=== PATIENT | male | born 1955 | race Caucasian/White ===

== ENCOUNTER 2022-06-01 21:27 | Inpatient (IN) | payer MEDICAID, SELFPAY ==
[2022-06-01] VITALS (9 sets, daily range): BP systolic 90–124; BP diastolic 69–86; PULSE 89–116; RESP 12–25; TEMP 37.1; O2SAT 77–98
--- NOTE | 2022-06-01 21:57 | W.ED.SOB ---
HPI - SOB/Dyspnea General: Chief Complaint: Shortness of Breath/Dyspnea Stated Complaint: SOB Time Seen by Provider: 06/01/22 21:57 History of Present Illness: HPI Narrative: Mr. Olguin is a 66-year-old gentleman with history of smoking and recurrent exposure to environmental/construction debris presenting to the emergency department for shortness of breath. Symptoms have been worse over the past day or so. He continues to smoke and was taking down wallpaper in any old house. He does note cough which is productive. Denies baseline oxygen use. Intensity symptoms is moderate severe and he is a new oxygen requirement. No other specific changes in health, exacerbating, or alleviating factors identified. Pertinent past history: COPD Onset (ago): hour(s) Context: other Timing: progressively worsening Severity: severe Exacerbating factors: exertion Relieving factors: nothing Associated symptoms: Reports cough Review of Systems General: Reports: 10 or more systems reviewed and unremarkable except in HPI and below PFSH ED PFSH: Medical History COPD (chronic obstructive pulmonary disease) HTN (hypertension) Surgical History No significant past surgical history Family History Other COPD (chronic obstructive pulmonary disease) Cancer Social History Smoking and tobacco status: current every day smoker cigarettes [ Other cigarette details: Has cut down] Lives independently: Yes Current occupational status: employed Current occupational exposures/hazards: Yes 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 Exam Const: COMMON NORMALS: alert GENERAL APPEARANCE: cooperative and well developed HENMT: COMMON NORMALS: normocephalic and atraumatic HEAD & SCALP: normocephalic and atraumatic Eye: COMMON NORMALS: conjunctivae normal CONJUNCTIVA: Yes conjunctivae normal SCLERA: sclerae normal Neck/C-Spine: COMMON NORMALS: supple GENERAL: Yes trachea midline Resp: EFFORT & INSPECTION: Yes tachypneic AUSCULTATION: diminished lung sounds Cardio: COMMON NORMALS: regular rate and regular rhythm RATE: regular rate RHYTHM: regular rhythm GI: COMMON NORMALS: Soft to palpation PALPATION: Yes Soft to palpation and No Tenderness to palpation present (GI) PERCUSSION: normal to percussion Extremity: GENERAL: Yes normal exam except as noted and No edema Neuro: COMMON NORMALS: moves all extremities SENSORIUM/ORIENTATION: Yes alert and No Orientation impaired Psych: COMMON NORMALS: mental status grossly normal and Normal thought process present THOUGHT PROCESS: Normal thought process present Course Vital Signs: Vital signs: Vital Signs Temperature 98.1 F 06/03/22 01:07 Pulse Rate 89 06/03/22 02:02 Respiratory Rate 16 06/03/22 02:02 Blood Pressure 93/59 06/03/22 01:07 Pulse Oximetry 92 06/03/22 02:02 Oxygen Delivery Me thod 06/03/22 02:02 Oxygen Flow Rate 5 06/03/22 02:02 Fraction of Inspir ed Oxygen 40 06/02/22 04:00 MDM - SOB/Dyspnea Medical Decision Making 66-year-old gentleman with history of COPD and no baseline oxygen requirement with continued smoking and environmental exposure presenting in respiratory distress. Patient oxygen saturation on room air in the 70s and initiated on supplemental oxygen. Patient is tachypneic and tachycardic. His mentation is adequate. He is nontoxic in appearance. RT treatments ordered. Steroids and antibiotics ordered. ABG notable for hypercapnic and hypoxic respiratory failure. BiPAP ordered. EKG notable for sinus tachycardia with nonspecific ST segment abnormalities, no STEMI. Labs with mild leukocytosis, normal hemoglobin and platelet count. Metabolic panel with increased bicarb which is likely chronic. Initial troponin mildly elevated with repeat pending. BNP is elevated. Chest x-ray negative for lobar consolidation or pneumothorax. Patient clinically appears improved with more comfortable appearance and improvement in vital signs on BiPAP. Most likely etiology of symptoms is acute exacerbation of COPD with acute hypoxic and hypercapnic respiratory failure. The results of ED evaluation were discussed with the patient including plan for admission due to requirement for level of care not available if discharged to prevent significant worsening/deterioration. Patient agreeable with plan. Discussed with hospitalist service who was agreeable to admit patient. Medical Records I reviewed the patient's medical records. Lab Data I reviewed the patient's lab results. 06/01/22 22:08 06/01/22 22:08 Labs/Radiology: Radiology Impressions Chest X-Ray 06/01/22 22:00 IMPRESSION: No acute findings. Laboratory Results WBC 11.5 10^3/uL (4.0-10.0) H 06/01/22 22:08 RBC 5.15 10^6/uL (4.1-5.3) 06/01/22 22:08 Hgb 16.1 g/dL (11.7-16.6) 06/01/22 22:08 Hct 53.2 % (42.0-52.0) H 06/01/22 22:08 MCV 103.3 fl (80-94) H 06/01/22 22:08 MCH 31.3 pg (28.0-34.0) 06/01/22 22:08 MCHC 30.3 g/dL (30.0-36.0) 06/01/22 22:08 RDW 14.3 % (12.1-15.1) 06/01/22 22:08 Plt Count 217 10^3/cmm (130-400) 06/01/22 22:08 MPV 9.8 fL (7.4-10.4) 06/01/22 22:08 Neut % (Auto) 83.2 % 06/01/22 22:08 Lymph % (Auto) 10.9 % 06/01/22 22:08 [place] % (Auto) 5.1 % 06/01/22 22:08 Eos % (Auto) 0.2 % 06/01/22 22:08 Baso % (Auto) 0.3 % 06/01/22 22:08 Neut # (Auto) 9.60 10^3/uL (1.8-7.7) H 06/01/22 22:08 Lymph # (Auto) 1.3 10^3/uL (0.8-4.8) 06/01/22 22:08 [place] # (Auto) 0.6 10^3/uL (0.2-0.9) 06/01/22 22:08 Eos # (Auto) 0.0 10^3/uL (0.0-0.8) 06/01/22 22:08 Baso # (Auto) 0.0 10^3/uL (0.0-0.1) 06/01/22 22:08 Nucleated RBC % (auto) 0 % 06/01/22 22:08 Nucleated RBCs # 0.0 /100WBC 06/01/22 22:08 Specimen Type Arterial 06/01/22 22:14 Sample Site Radial, left 06/01/22 22:14 ABG pH 7.28 (7.35-7.45) L 06/01/22 22:14 ABG pCO2 78.6 mmHg (35-45) H* 06/01/22 22:14 ABG pO2 63.1 mmHg (80.0-100.0) L 06/01/22 22:14 ABG HCO3 36.9 mmol/L (22-26) H 06/01/22 22:14 ABG Base Excess 6.6 mmol/L (-2.0-2.0) H 06/01/22 22:14 Yan Test Pos 06/01/22 22:14 Hematocrit 48.3 % (42-52) 06/01/22 22:14 Hgb O2 Saturation 84.9 % (95-100) L 06/01/22 22:14 Carboxyhemoglobin 5.9 %THgb (0.4-20.1) 06/01/22 22:14 Methemoglobin 0.4 % (0.4-1.5) 06/01/22 22:14 Total Hemoglobin 15.8 g/dL (14-18) 06/01/22 22:14 O2 Delivery Device Nc 06/01/22 22:14 FiO2 4.0 % 06/01/22 22:14 Medical Records Technician ID [email or web address] 06/01/22 22:14 Sodium 139 mmol/L (136-145) 06/01/22 22:08 Potassium 4.9 mmol/L (3.5-5.1) 06/01/22 22:08 Chloride 97 mmol/L (98-107) L 06/01/22 22:08 Carbon Dioxide 35 mmol/L (22-29) H 06/01/22 22:08 Anion Gap 11.9 (5-19) 06/01/22 22:08 BUN 11 mg/dL (8-23) 06/01/22 22:08 Creatinine 1.0 mg/dL (0.7-1.2) 06/01/22 22:08 GFR Calculation 75.2 mL/min (90-130) L 06/01/22 22:08 Glucose 138 mg/dL (65-115) H 06/01/22 22:08 Calculated Osmolality 290 mOsm/kg (285-295) 06/01/22 22:08 Lactic Acid 1.2 mmol/L (0.5-2.2) 06/01/22 22:08 Calcium 9.0 mg/dL (8.5-10.5) 06/01/22 22:08 Total Bilirubin 0.8 mg/dL (0.15-1.2) 06/01/22 22:08 AST 24 U/L (0-40) 06/01/22 22:08 ALT 15 U/L (0-41) 06/01/22 22:08 Alkaline Phosphatase 134 U/L (40-130) H 06/01/22 22:08 Troponin T Baseline 35 ng/L (0-15) H 06/01/22 22:08 Troponin T 120 Minute 37.04 ng/L (0-15) H 06/02/22 00:25 Delta Troponin T 2.04 ABS# (0-10) 06/02/22 00:25 NT-Pro-B Natriuret Pep 6582 pg/mL (0-125) H 06/01/22 22:08 Total Protein 7.6 g/dL (6.6-8.7) 06/01/22 22:08 Albumin 3.6 g/dL (3.5-5.2) 06/01/22 22:08 Globulin 4.0 g/dL (1.3-4.6) 06/01/22 22:08 SARS-CoV-2 Ag (Rapid) negative (Negative) 06/02/22 00:39 Critical Care Time Critical Care Time: Critical Care Time: Yes Total Critical Care Time: 35 Attestation: Due to a high probability of clinically significant, possibly life threatening deterioration, the patient required my highest level of attention and preparedness to intervene emergently and I personally spent this critical care time directly and personally managing the patient. This critical care time included obtaining a history; examining the patient; pulse oximetry; ordering and review of laboratory and imaging studies; arranging urgent treatment with development of a management plan; evaluation of patient's response to treatment; frequent reassessment; and, discussions with other providers as applicable. It was exclusive of separately billable procedures. Primary system involved is respiratory Discharge Plan Discharge Patient Disposition: Admitted As Inpatient Admit Provider: Darius Victor Clinical Impression: Acute exacerbation of chronic obstructive airways disease, Acute respiratory failure with hypoxia and hypercarbia Condition: Stable Coding Level of Care Code ED Sales And Marketing Representative for Estevan Bagley
--- NOTE | 2022-06-01 22:00 | XRR_ITS ---
PROCEDURE INFORMATION: Exam: XR Chest Exam date and time: 06/01/2022 10:05 PM Age: 66 years old Clinical indication: Pain; Chest pressure; Additional info: SOB TECHNIQUE: Imaging protocol: Radiologic exam of the chest. Views: 1 view. COMPARISON: No relevant prior studies available. FINDINGS: Lungs: Unremarkable. No consolidation. Pleural spaces: Unremarkable. No pleural effusion. No pneumothorax. Heart/Mediastinum: Unremarkable. No cardiomegaly. Bones/joints: Unremarkable. XR/XR chest 1V portable [id number] IMPRESSION: No acute findings.
[2022-06-01] MEDS: ipratropium-albuterol 3 mL Neb INHALATION (22:13)
[2022-06-01 22:20] LABS: Basophils % 0.3 %; Eosinophils % 0.2 %; Hematocrit 53.2 % (42.0-52.0); Hemoglobin 16.1 g/dL (11.7-16.6); Lymphocytes # 1.3 10^3/uL (0.8-4.8); Lymphocytes % 10.9 %; Mean Corpuscular HGB Conc 30.3 g/dL (30.0-36.0); Mean Corpuscular Hemoglobin 31.3 pg (28.0-34.0); Mean Corpuscular Volume 103.3 fl (80-94); Mean Platelet Volume 9.8 fL (7.4-10.4); Monocytes # 0.6 10^3/uL (0.2-0.9); Monocytes % 5.1 %; Neutrophils % 83.2 %; Nucleated Red Blood Cells % 0 %; Platelet Count 217 10^3/cmm (130-400); Red Blood Count 5.15 10^6/uL (4.1-5.3); Red Cell Distribution Width 14.3 % (12.1-15.1); White Blood Count 11.5 10^3/uL (4.0-10.0)
[2022-06-01 22:23] LABS: ABG PH Result 7.28 (7.35-7.45); Arterial Blood Gas Hematocrit 48.3 % (42-52); Base Excess ABG 6.6 mmol/L (-2.0-2.0); Blood Gas Allen Test Pos; Blood Gas Sample Site Radial, left; Blood Gas Sample Type Arterial; Carboxyhemoglobin 5.9 %THgb (0.4-20.1); HCO3 ABG 36.9 mmol/L (22-26); HGB O2 Sat 84.9 % (95-100); Methemoglobin 0.4 % (0.4-1.5); Oxygen Device NC; PO2 ABG 63.1 mmHg (80.0-100.0); Total Hemoglobin 15.8 g/dL (14-18)
--- NOTE | 2022-06-01 22:28 | ECG_ITS ---
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
[2022-06-01 22:37] LABS: ABG PCO2 78.6 mmHg (35-45)
[2022-06-01 22:49] LABS: Lactic Sepsis W/Reflex 1.2 mmol/L (0.5-2.2)
[2022-06-01] MEDS: doxycycline 100 MG in sodium chloride 0.9% (plus) 100 ML IV (22:50)
[2022-06-01] MEDS: sodium chloride 0.9% 500 ML 999 ML IV (22:50)
[2022-06-01 22:58] LABS: Alanine Aminotransferase 15 U/L (0-41); Albumin Level 3.6 g/dL (3.5-5.2); Alkaline Phosphatase 134 U/L (40-130); Anion Gap 11.9 (5-19); Aspartate Amino Transferase 24 U/L (0-40); Blood Urea Nitrogen 11 mg/dL (8-23); Carbon Dioxide 35 mmol/L (22-29); Chloride 97 mmol/L (98-107); Glomerular Filtration Rate 75.2 mL/min (90-130); Glucose 138 mg/dL (65-115); NT Pro B Type Natriuretic Pept 6582 pg/mL (0-125); Osmolality Calculated 290 mOsm/kg (285-295); Potassium 4.9 mmol/L (3.5-5.1); Sodium 139 mmol/L (136-145); Total Bilirubin 0.8 mg/dL (0.15-1.2); Total Protein 7.6 g/dL (6.6-8.7)
[2022-06-01 23:11] LABS: Troponin(5th) Baseline 35 ng/L (0-15)
[2022-06-02] VITALS (17 sets, daily range): BP systolic 93–161; BP diastolic 52–79; PULSE 60–96; RESP 16–20; TEMP 36.3–36.7; O2SAT 90–96
[2022-06-02 01:00] LABS: Troponin 5 2HR 37.04 ng/L (0-15)
[2022-06-02 01:07] LABS: Troponin 5 2HR Delta 2.04 ABS# (0-10)
[2022-06-02 01:13] LABS: SARS Covid-2 Antigen negative (Negative)
--- NOTE | 2022-06-02 01:14 | PM.HP ---
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 Started on BiPAP. Not normally on supplemental oxygen. Review of Systems Const: Denies: fever(s), chills, body aches or malaise Eyes: Denies: change in vision, eye discomfort or eye redness ENMT: Denies: throat pain, oral sores or ear or mastoid pain Card: Denies: chest pain, edema, pre-syncope or dyspnea on exertion Resp: Reports: dyspnea and productive cough GI: Denies: abdominal pain, nausea, vomiting, diarrhea, constipation, hematochezia or melena : Denies: flank pain, difficulty urinating, urinary frequency or hematuria Musc: Denies: back pain, joint swelling or joint redness Skin/Breast: Denies: rash or new lesions Neuro: Denies: headache(s), numbness in extremities, weakness in extremities, dizziness, confusion or seizure-like activity Endo: Denies: polyuria or polydipsia Lico/Lymph: Denies: easy bleeding or tender lymph nodes All/Imm: Denies: urticaria or tongue swelling PFSH Acute PFSH: Medical History COPD (chronic obstructive pulmonary disease) HTN (hypertension) Surgical History No significant past surgical history Family History Other COPD (chronic obstructive pulmonary disease) Cancer Social History Smoking and tobacco status: current every day smoker cigarettes [ Other cigarette details: Has cut down] Lives independently: Yes Current occupational status: employed Current occupational exposures/hazards: Yes 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 Const: COMMON NORMALS: patient oriented x3 and alert GENERAL APPEARANCE: cooperative ORIENTATION/CONSCIOUSNESS: Yes awake HENMT: COMMON NORMALS: oropharynx normal Neck/C-Spine: COMMON NORMALS: no JVD Resp: AUSCULTATION: wheezes lower bilaterally OTHER: BPAP Cardio: COMMON NORMALS: no JVD, regular rhythm, S1 normal heart sound present, S2 normal heart sound present and No murmurs present (Cardio) RHYTHM: regular rhythm HEART SOUNDS: S1 normal heart sound present and S2 normal heart sound present GI: COMMON NORMALS: Normal to inspection, nondistended, normoactive bowel sounds present, Soft to palpation and non-tender PALPATION: Yes Soft to palpation Extremity: COMMON NORMALS: no joint enlargement and no pedal edema Neuro: COMMON NORMALS: patient oriented x3 and moves all extremities SENSORIUM/ORIENTATION: Yes alert Skin: COMMON NORMALS: no rashes or lesions noted GENERAL SKIN EXAM: no rashes or lesions noted Data 06/01/22 22:08 06/01/22 22:08 Micro: Microbiology 06/01/22 22:22 Blood Culture - Preliminary Blood SPECIMEN COLLECTED 06/01/22 22:08 Blood Culture - Preliminary Blood SPECIMEN COLLECTED A&P Assessment and plan (1) Acute respiratory failure with hypoxia and hypercarbia: ABG noted 7.28/78.6/63.1/36.9, with acute respiratory acidosis. Continue BiPAP support. Wean down as tolerating. Not normally on oxygen. For COPD exacerbation we will give IV steroid, ceftriaxone, collect urine culture. Noted negative rapid COVID. Assess for rapid influenza. RT assess and treat. Cardiac monitoring due to respiratory failure, risk of arrhythmia. Complete trop and EKG series. Discussed with ER physician. ER documentation reviewed. (2) Acute exacerbation of chronic obstructive airways disease: As above. Plan COPD: At home uses Trelegy HTN: Stable, takes a medication at home but does not remember the name of it With regards to CODE STATUS, he is okay with full code for now, but would like to think about things and may let us know in case he decides to de-escalate. Attestations Medical Necessity Statement*: Admission of over 2 midnights anticipated for assessment management of acute hypoxic and hypercapnic respiratory failure, COPD exacerbation. Diagnoses Acute respiratory failure with hypoxia and hypercarbia J96.01; J96.02 Acute exacerbation of chronic obstructive airways disease J44.1
--- NOTE | 2022-06-02 01:44 | PC.NURSE ---
Report called to allyn on [facility] @01:44
[2022-06-02 02:43] LABS: Influenza A by IFA negative (Negative); Influenza B by IFA negative (Negative)
[2022-06-02] MEDS: ipratropium-albuterol 3 mL Neb INHALATION ×4 (02:47→20:05)
--- NOTE | 2022-06-02 02:54 | ECG_ITS ---
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1955 Requested By: Ji Nicholson Order Number: [id number] Reading MD: NAIMA ACUNA Measurements Intervals [place] Rate: 90 P: 55 CA: 170 QRS: 211 QRSD: 98 T: 34 QT: 356 QTc: 436 Interpretive Statements SINUS RHYTHM PATTERN CONSISTENT WITH PULMONARY DISEASE POSSIBLE RIGHT VENTRICULAR HYPERTROPHY [SOME/ALL OF: PROMINENT R IN V1, LATE TRANSITION, RAD, MIKE, SSS] MINIMAL ST DEPRESSION [0.025+ mV ST DEPRESSION] No previous ECG available for comparison Electronically Signed On 06-02-2022 17:44:13 CDT by NAIMA ACUNA [id number]
[2022-06-02] MEDS: albuterol 2.5 mg/3 mL Neb INHALATION ×3 (03:35→03:37)
[2022-06-02] MEDS: cefTRIAXone 1,000 MG in sodium chloride 0.9% (plus) 50 ML 100 MG IV (04:11)
--- NOTE | 2022-06-02 04:28 | ECG_ITS ---
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
[2022-06-02 05:04] LABS: Troponin 5 6HR 33.14 ng/L (0-15)
[2022-06-02 05:26] LABS: Troponin 5 6HR Delta -1.86 ng/L (0-12)
--- NOTE | 2022-06-02 10:50 | PM.MISC ---
Miscellaneous Note Note: Patient was seen H&P reviewed Patient is on 5 L nasal cannula Mild wheezing Awake and alert S1, S2 Hemodynamic stable I will continue his steroids Off BiPAP Wean oxygen off Plan to discharge him by tomorrow Afebrile Mild leukocytosis Patient is stating that he would like to follow-up with his own PCP No active chest pain
[2022-06-02] MEDS: magnesium sulfate premix 2 GM/50 ML PIGGYBACK IV (11:18)
[2022-06-02] MEDS: lisinopril 10 mg Tablet PO (11:18)
[2022-06-02] MEDS: amlodipine 10 mg Tablet PO (11:18)
[2022-06-03] VITALS (13 sets, daily range): BP systolic 87–100; BP diastolic 50–63; PULSE 82–103; RESP 16–18; TEMP 36.5–36.9; O2SAT 90–100
[2022-06-03] MEDS: cefTRIAXone 1,000 MG in sodium chloride 0.9% (plus) 50 ML 100 MG IV (01:11)
[2022-06-03] MEDS: ipratropium-albuterol 3 mL Neb INHALATION ×3 (02:02→20:06)
[2022-06-03 05:15] LABS: Basophils % 0.1 %; Eosinophils % 0.1 %; Hematocrit 45.4 % (42.0-52.0); Hemoglobin 13.9 g/dL (11.7-16.6); Lymphocytes # 0.4 10^3/uL (0.8-4.8); Lymphocytes % 2.1 %; Mean Corpuscular HGB Conc 30.6 g/dL (30.0-36.0); Mean Corpuscular Hemoglobin 31.4 pg (28.0-34.0); Mean Corpuscular Volume 102.7 fl (80-94); Mean Platelet Volume 10.5 fL (7.4-10.4); Monocytes # 0.1 10^3/uL (0.2-0.9); Monocytes % 0.7 %; Neutrophils # 17.65 10^3/uL (1.8-7.7); Neutrophils % 96.5 %; Nucleated Red Blood Cells % 0 %; Platelet Count 207 10^3/cmm (130-400); Red Blood Count 4.42 10^6/uL (4.1-5.3); Red Cell Distribution Width 14.3 % (12.1-15.1); White Blood Count 18.3 10^3/uL (4.0-10.0)
[2022-06-03 05:38] LABS: Alanine Aminotransferase 10 U/L (0-41); Albumin Level 2.9 g/dL (3.5-5.2); Alkaline Phosphatase 105 U/L (40-130); Anion Gap 13.3 (5-19); Aspartate Amino Transferase 14 U/L (0-40); Blood Urea Nitrogen 30 mg/dL (8-23); Calcium 8.4 mg/dL (8.5-10.5); Carbon Dioxide 32 mmol/L (22-29); Chloride 98 mmol/L (98-107); Globulin 3.2 g/dL (1.3-4.6); Glucose 159 mg/dL (65-115); Osmolality Calculated 296 mOsm/kg (285-295); Potassium 5.3 mmol/L (3.5-5.1); Sodium 138 mmol/L (136-145); Total Bilirubin 0.4 mg/dL (0.15-1.2); Total Protein 6.1 g/dL (6.6-8.7)
--- NOTE | 2022-06-03 08:01 | CT_ITS ---
WS: [id number] CT CHEST ANGIOGRAPHY WITH REFORMATS HISTORY: hypoxia TECHNIQUE: Contiguous axial images are obtained through the chest during arterial injection of intrav enous contrast. Images are reconstructed to evaluate the pulmonary arteries. MIP imaging also reviewe d. All CT scans at [facility] use at least one of these dose optimization techniques: automat ed exposure control; mA and/or kV adjustment per patient size (includes targeted exams where dose is matched to clinical indication); or iterative reconstruction. CONTRAST: Omnipaque 350; 100 mL IV. DLP: 412.41 mGy.cm COMPARISON: None available. Excellent opacification of the pulmonary arteries. No filling defects. Pulmonary artery size is top n ormal. Mild atherosclerosis thoracic aorta. Calcified plaque and intimal thickening with no aneurysm or dissection. Mild atherosclerotic disease extends into the proximal great vessels. Heart is slightl y enlarged. There is mild RIGHT heart strain. Interventricular septum is flattened in the RIGHT heart is dilated. Very mildly prominent lymphoid tissue in the mediastinum and linda but no obvious enlarged lymph nodes . Hyperinflated lungs and chronic emphysema. 5 mm noncalcified nodule RIGHT upper lobe. No pneumonia. Very small bilateral pleural effusions. Small hiatal hernia. Mild lobular appearance of the liver as visualized with hepatic steatosis. Consider cirrhosis. There is mild soft tissue anasarca. Mesenteric edema is also noted with marked perinephric stranding and fl uid surrounding the kidneys. Atherosclerotic changes continue into the suprarenal aorta. L1 20% compression fracture. CT/CT angio chest PE protcl [id number] IMPRESSION: 1. No pulmonary embolism. 2. Pulmonary artery is top normal size. 3. Mild RIGHT heart enlargement with flattening of the interventricular septum and RIGHT heart strain. 4. Diffuse, mild soft tissue anasarca. 5. Moderate perinephric stranding surrounding the visualized kidneys. 6. No pneumonia. 7. 5 mm noncalcified RIGHT upper lobe nodule. Recommend follow-up chest CT in 6 months. 8. Small bilateral pleural effusions.
[2022-06-03] MEDS: iohexol 350 mg/mL 500 mL Btl (per mL) IV (08:38)
--- NOTE | 2022-06-03 10:06 | USCV_ITS ---
Silvestre Olguin Age: 66 Gender: M : 1955 Exam Date: 06/03/2022 10:42 Ordering Phys: Latasha Louise MD Technologist: LUIS Exam Location: [facility] [place] Indication: FOLLOW UP CT FOR FLATTENING OF THE INTRAVENTICULAR SEPTUM BP: 96 / 61 HR: 88 Rhythm: Sinus Technical Quality: Adequate MEASUREMENTS (Male / Female) Normal Values 2D ECHO LVOT Diameter 2.0 cm LV Ejection Fraction MOD 2C 70.0 % LV Ejection Fraction 2C AL 72.0 % LA Diameter 2.9 cm LA Width 3.5 cm LA Height 3.6 cm RA Width 5.5 cm RA Height 5.6 cm Aorta at Sinotubular Diameter 2.3 cm IVC Diameter 2.3 cm M-MODE Aortic Annulus Diameter 3.2 cm LA Ao Ratio MM 0.8 MV E Point Septal Separation 0.0 cm DOPPLER AV Peak Velocity 142.0 cm/s LVOT Peak Velocity 92.0 cm/s AV Area Cont Eq vti 2.1 cm squared AV Area Cont Eq pk 2.0 cm squared MV Peak Velocity 110.0 cm/s MV Area PHT 3.1 cm squared Mitral E to A Ratio 0.9 MV E' Velocity 56.5 cm/s Mitral E to MV E' Ratio 7.7 Mitral E to LV E' Lateral Ratio 7.2 Mitral E to LV E' Septal Ratio 8.2 TR Peak Velocity 210.8 cm/s TR Peak Gradient 17.8 mmHg TR Mean Velocity 202.7 cm/s TR Mean Gradient 17.2 mmHg TR Velocity Time Integral 73.5 cm TV Peak E Velocity 64.0 cm/s Right Atrial Pressure 15.0 mmHg Pulmonary Artery Systolic Pressu 32.8 mmHg PV Peak Velocity 105.0 cm/s RV Acceleration Time 0.2 s RV Ejection Time 0.3 s RV AcT/ET 0.5 FINDINGS Left Ventricle Normal left ventricular size, systolic function and wall thickness, left ventricular ejection fraction is estimated at 55 %. Flattened septum in diastole consistent with right ventricle volume overload. Flattened septum in systole consistent with right ventricle pressure overload. Grade I/IV diastolic dysfunction (abnormal relaxation filling pattern), normal to mildly elevated filling pressures. Right Ventricle Severely increased right ventricular size. Severely decreased right ventricular systolic function. Right Atrium Moderately increased right atrial size. Left Atrium The left atrium is normal in size. Mitral Valve Structurally normal mitral valve without significant stenosis or prolapse. There is no mitral regurgitation. Aortic Valve Structurally normal aortic valve without significant sclerosis or stenosis. There is no aortic regurgitation. Tricuspid Valve Structurally normal tricuspid valve without significant stenosis, mild regurgitation. Pulmonary artery systolic pressure is mildly increased. Pulmonic Valve Structurally normal pulmonic valve without significant stenosis. There is no pulmonic regurgitation. Pericardium Normal pericardium without effusion. Aorta Normal ascending aorta dimension. IVC Dilated IVC with decreased respiratory variation. CONCLUSIONS 1-Normal left ventricular size, systolic function and wall thickness, left ventricular ejection fraction is estimated at 55 %. Flattened septum in diastole consistent with right ventricle volume overload. Flattened septum in systole consistent with right ventricle pressure overload. Grade I/IV diastolic dysfunction (abnormal relaxation filling pattern), normal to mildly elevated filling pressures. 2-Severely increased right ventricular size. Severely decreased right ventricular systolic function. 3-Moderately increased right atrial size. 4-Structurally normal tricuspid valve without significant stenosis, mild regurgitation. Pulmonary artery systolic pressure is mildly increased. 5-There is no pericardial effusion. 6-Dilated IVC with decreased respiratory variation. Latasha Nichols MD (Electronically Signed) Final Date: 03 June 2022 19:12 S
--- NOTE | 2022-06-03 10:42 | P.PN_ITS ---
Subjective Subjective: Blood pressure staying soft Requested CTA chest however which did not show PE however it is showing right heart strain right ventricular dysfunction, I requested echo Patient is on 4 L Low blood pressure noted Held antihypertensive regimen Patient is stating that he has obstructive disease alcohol with Pepsi, his CT scan is showing signs of liver cirrhosis 20% compression fracture L1 Vitals/I&O/Wt Last Vital Signs Temp 97.8 F 06/03/22 08:00 Pulse 85 06/03/22 08:00 Resp 16 06/03/22 08:00 BP 96/61 06/03/22 08:00 Pulse Ox 92 06/03/22 08:00 O2 Del Method 06/03/22 08:00 O2 Flow Rate 4 06/03/22 07:35 FiO2 40 06/02/22 04:00 06/02/22 06/03/22 06/03/22 22:59 06:59 14:59 Intake Total 240 / 580 50 / 630 0 / 0 Output Total 300 / 600 Balance -60 / -20 50 / 30 0 / 0 Weight last 48 hrs Weight 83.915 kg Physical Exam Narrative: Awake and alert GCS GCS 15 Pleasant and cooperative Sitting in the bed nurse at the bedside Abdomen soft Nonfocal neuro exam No conversational dyspnea Data 06/03/22 04:19 06/03/22 04:19 Micro: Microbiology 06/01/22 22:22 Blood Culture - Preliminary Blood NEGATIVE TO DATE 06/01/22 22:08 Blood Culture - Preliminary Blood NEGATIVE TO DATE A&P Assessment and plan (1) Acute exacerbation of chronic obstructive airways disease: (2) Acute respiratory failure with hypoxia and hypercarbia: (3) COPD (chronic obstructive pulmonary disease): (4) Alcohol abuse: Plan COPD exacerbation: Currently patient on 4 L Continue antibiotics Off BiPAP Will need home O2 eval Interventricular septum deviation noted on CT chest which was requested to rule out PE Will request echo It is also showing L1 compression fracture Liver cirrhosis Patient has history of alcohol Patient is stating that he has substituted alcohol with Pepsi, he drinks Pepsi all day now Active smoker Full code Cardiac diet Hypertension: Added amlodipine lisinopril yesterday however today he is hypotensive: No active chest pain Troponin with negative delta Rule out reduced ejection fraction heart failure requested echo Attestations Medical Necessity Statement*: Continue medical management Coding Level of Care Code 22551 Moderate MDM includes number and complexity of problems actively addressed during encounter, amount and/or complexity of data reviewed/ordered and described risk of complication, morbidity or mortality of management as document ed Diagnoses Acute exacerbation of chronic obstructive airways disease J44.1 Acute respiratory failure with hypoxia and hypercarbia J96.01; J96.02 COPD (chronic obstructive pulmonary disease) J44.9 Alcohol abuse F10.10
[2022-06-04] VITALS (87 sets, daily range): BP systolic 97–120; BP diastolic 60–82; PULSE 60–106; RESP 2–38; TEMP 36.6–37; O2SAT 83–97
--- NOTE | 2022-06-04 03:58 | PC.NURSE ---
Took over pt care at this time.
[2022-06-04 05:34] LABS: Basophils % 0.1 %; Hematocrit 47.3 % (42.0-52.0); Hemoglobin 14.4 g/dL (11.7-16.6); Lymphocytes # 1.1 10^3/uL (0.8-4.8); Lymphocytes % 5.7 %; Mean Corpuscular HGB Conc 30.4 g/dL (30.0-36.0); Mean Corpuscular Hemoglobin 31.4 pg (28.0-34.0); Mean Corpuscular Volume 103.1 fl (80-94); Mean Platelet Volume 10.3 fL (7.4-10.4); Monocytes % 5.2 %; Neutrophils # 17.29 10^3/uL (1.8-7.7); Neutrophils % 88.5 %; Nucleated Red Blood Cells % 0 %; Platelet Count 215 10^3/cmm (130-400); Red Blood Count 4.59 10^6/uL (4.1-5.3); Red Cell Distribution Width 14.8 % (12.1-15.1); White Blood Count 19.6 10^3/uL (4.0-10.0)
--- NOTE | 2022-06-04 05:39 | PM.PN ---
Subjective Subjective: Patient remained on 4 L Blood pressure slightly improved Afebrile Discussed with the patient regarding right and left heart catheterization Discussed with Dr. Nichols his right ventricle is abnormal dilated No signs of PE on CTA, there is most likely underlying undiagnosed pulmonary hypertension Vitals/I&O/Wt Last Vital Signs Temp 98.3 F 06/04/22 04:00 Pulse 84 06/04/22 04:00 Resp 18 06/04/22 04:00 BP 109/72 06/04/22 04:00 Pulse Ox 94 06/04/22 04:00 O2 Del Method 06/03/22 20:00 O2 Flow Rate 4 06/03/22 20:00 FiO2 40 06/02/22 04:00 06/03/22 06/03/22 06/04/22 14:59 22:59 06:59 Intake Total 240 / 240 480 / 720 Output Total 650 / 650 Balance 240 / 240 480 / 720 -650 / 70 Physical Exam Narrative: Patient is awake and alert No active wheezing Fatigued and lethargic Currently on 4 L Diminished breath sounds bilaterally S1, S2 Euvolemic Nonfocal neuro exam Data 06/04/22 05:02 06/03/22 04:19 Micro: Microbiology 06/03/22 07:20 Gram Stain - Final Sputum - Expectorated Sputum A&P Assessment and plan (1) Acute exacerbation of chronic obstructive airways disease: (2) Acute respiratory failure with hypoxia and hypercarbia: (3) Right ventricular dysfunction: Plan 66-year male who does not follow-up with PCP on regular basis presented with chief complaint of worsening of shortness of breath he was diagnosed with hypoxic hypercapnic respiratory failure required BiPAP with transition him to 4 L nasal cannula, he is self-pay, during work-up found right heart strain, no signs of PE, likely undiagnosed pulmonary hypertension Acute COPD exacerbation Improved Currently on 4 L Acute on chronic hypoxia Currently on 4 L Home oxygen evaluation will be needed before discharge Right ventricular dysfunction like related to undiagnosed pulmonary hypertension No signs of PE Detailed discussion took place with the patient regarding right and left heart cath Echo reviewed Echo findings discussed with the patient All concerning findings explained to the patient in simple terms, right ventricle dysfunction is considered high risk for mortality morbidity Significant leukocytosis Request MRSA PCR Sputum culture reviewed Most likely leukocytosis due to high-dose steroids which were used every 8 hours on admission Full code N.p.o. DVT prophylaxis on board Attestations Medical Necessity Statement*: Continue medical management Diagnoses Acute exacerbation of chronic obstructive airways disease J44.1 Acute respiratory failure with hypoxia and hypercarbia J96.01; J96.02 Right ventricular dysfunction I51.9
[2022-06-04 05:54] LABS: Alanine Aminotransferase 14 U/L (0-41); Albumin Level 3.2 g/dL (3.5-5.2); Alkaline Phosphatase 93 U/L (40-130); Anion Gap 9.7 (5-19); Aspartate Amino Transferase 20 U/L (0-40); Blood Urea Nitrogen 26 mg/dL (8-23); Calcium 8.6 mg/dL (8.5-10.5); Carbon Dioxide 34 mmol/L (22-29); Chloride 98 mmol/L (98-107); Globulin 3.3 g/dL (1.3-4.6); Glomerular Filtration Rate 97.3 mL/min (90-130); Glucose 111 mg/dL (65-115); Osmolality Calculated 287 mOsm/kg (285-295); Potassium 5.7 mmol/L (3.5-5.1); Sodium 136 mmol/L (136-145); Total Bilirubin 0.5 mg/dL (0.15-1.2); Total Protein 6.5 g/dL (6.6-8.7)
[2022-06-04] MEDS: levoFLOXacin 750 mg Tablet PO (05:56)
[2022-06-04] MEDS: predniSONE 20 mg Tablet 40 MG PO (09:59)
--- NOTE | 2022-06-04 10:29 | PM.DCS ---
Discharge Providers Date of Admission: 06/02/22 02:07 Date of Discharge: June 04, 2022 Attending Provider at Admission: Darius Victor Attending Provider at Discharge: Latasha Louise MD Diagnoses at Discharge Discharge Diagnosis (1) Acute exacerbation of chronic obstructive airways disease: Status: Acute (2) Acute respiratory failure with hypoxia and hypercarbia: Status: Acute (3) Right ventricular dysfunction: Status: Acute Reason for Visit Reason for Visit: SOB Hospital Course Hospital Course 66-year male who was admitted for management of hypoxia hypercapnia related to COPD exacerbation, high BNP negative Troponins negative, echo showed preserved ejection fraction of left ventricle however right ventricle is extremely dilated, showing septal deviation, no signs of PE noted, patient was treated for hyperkalemia with insulin calcium gluconate and dextrose, this case was discussed with furniture fabricator Dr. Badillo, patient most likely has undiagnosed severe pulmonary hypertension, I took my time to explain the gravid situation and explained electrolyte clinical dysfunction means, patient did not agree for right and left heart cardiac catheterization, he was kept n.p.o. for the possible procedure but he is wanting to leave and stating he would like to follow-up outpatient. Patient is stating that his CODE STATUS is DNR/DNI he is not full code, lives with a girlfriend, he does not have any family members to discuss the situation. He has quit alcohol, I did tell him about liver cirrhotic findings on imaging, I did tell him that he carries high risk for sudden cardiac arrest, he is high risk for mortality and morbidity, I will give him Dr. Royal as outpatient cardiac referral. Does not go want to go to [facility] for pulmonary hypertension clinic appointment yet. I will give him referral in case he changes his mind. Patient has been requiring 4 L of oxygen. I want to be able to give him metoprolol, lisinopril and spironolactone, for now I would like to treat his hypoxia with trelegy and albuterol. Because of low blood pressure Physical Exam Narrative: Patient is awake and alert No active wheezing Fatigued and lethargic Currently on 4 L Diminished breath sounds bilaterally S1, S2 Euvolemic Nonfocal neuro exam Discharge Data Studies Completed and Pending Completed Studies During Hospitalization Category Date Time Status CTA PE [CT angio chest PE protcl [id number]] Routine Cat Scan 06/03/22 08:01 Completed XR chest 1V portable [id number] Stat Exams 06/01/22 22:00 Completed CV. echo complete* [id number] Routine Ultrasound 06/03/22 10:06 Completed Pending at discharge Category Date Time Status Blood Culture Stat Lab 06/01/22 22:22 Results Complete Blood Count w/Auto AM LABS Lab 06/05/22 04:00 Ordered Comprehensive Metabolic Panel AM LABS Lab 06/05/22 04:00 Ordered Sputum Culture and Gram Stain Routine Lab 06/02/22 02:07 Results Radiology Impressions Chest X-Ray 06/01/22 22:00 IMPRESSION: No acute findings. Chest CTA 06/03/22 08:01 IMPRESSION: 1. No pulmonary embolism. 2. Pulmonary artery is top normal size. 3. Mild RIGHT heart enlargement with flattening of the interventricular septum and RIGHT heart strain. 4. Diffuse, mild soft tissue anasarca. 5. Moderate perinephric stranding surrounding the visualized kidneys. 6. No pneumonia. 7. 5 mm noncalcified RIGHT upper lobe nodule. Recommend follow-up chest CT in 6 months. 8. Small bilateral pleural effusions. Laboratory Results WBC 19.6 10^3/uL (4.0-10.0) H 06/04/22 05:02 RBC 4.59 10^6/uL (4.1-5.3) 06/04/22 05:02 Hgb 14.4 g/dL (11.7-16.6) 06/04/22 05:02 Hct 47.3 % (42.0-52.0) 06/04/22 05:02 MCV 103.1 fl (80-94) H 06/04/22 05:02 MCH 31.4 pg (28.0-34.0) 06/04/22 05:02 MCHC 30.4 g/dL (30.0-36.0) 06/04/22 05:02 RDW 14.8 % (12.1-15.1) 06/04/22 05:02 Plt Count 215 10^3/cmm (130-400) 06/04/22 05:02 MPV 10.3 fL (7.4-10.4) 06/04/22 05:02 Neut % (Auto) 88.5 % 06/04/22 05:02 Lymph % (Auto) 5.7 % 06/04/22 05:02 [place] % (Auto) 5.2 % 06/04/22 05:02 Eos % (Auto) 0.0 % 06/04/22 05:02 Baso % (Auto) 0.1 % 06/04/22 05:02 Neut # (Auto) 17.29 10^3/uL (1.8-7.7) H 06/04/22 05:02 Lymph # (Auto) 1.1 10^3/uL (0.8-4.8) 06/04/22 05:02 [place] # (Auto) 1.0 10^3/uL (0.2-0.9) H 06/04/22 05:02 Eos # (Auto) 0.0 10^3/uL (0.0-0.8) 06/04/22 05:02 Baso # (Auto) 0.0 10^3/uL (0.0-0.1) 06/04/22 05:02 Nucleated RBC % (auto) 0 % 06/04/22 05:02 Nucleated RBCs # 0.0 /100WBC 06/04/22 05:02 Specimen Type Arterial 06/01/22 22:14 Sample Site Radial, left 06/01/22 22:14 ABG pH 7.28 (7.35-7.45) L 06/01/22 22:14 ABG pCO2 78.6 mmHg (35-45) H* 06/01/22 22:14 ABG pO2 63.1 mmHg (80.0-100.0) L 06/01/22 22:14 ABG HCO3 36.9 mmol/L (22-26) H 06/01/22 22:14 ABG Base Excess 6.6 mmol/L (-2.0-2.0) H 06/01/22 22:14 Yan Test Pos 06/01/22 22:14 Hematocrit 48.3 % (42-52) 06/01/22 22:14 Hgb O2 Saturation 84.9 % (95-100) L 06/01/22 22:14 Carboxyhemoglobin 5.9 %THgb (0.4-20.1) 06/01/22 22:14 Methemoglobin 0.4 % (0.4-1.5) 06/01/22 22:14 Total Hemoglobin 15.8 g/dL (14-18) 06/01/22 22:14 O2 Delivery Device Nc 06/01/22 22:14 FiO2 4.0 % 06/01/22 22:14 Outsole Splicer ID [email or web address] 06/01/22 22:14 Sodium 136 mmol/L (136-145) 06/04/22 05:02 Potassium 5.7 mmol/L (3.5-5.1) H 06/04/22 05:02 Chloride 98 mmol/L (98-107) 06/04/22 05:02 Carbon Dioxide 34 mmol/L (22-29) H 06/04/22 05:02 Anion Gap 9.7 (5-19) 06/04/22 05:02 BUN 26 mg/dL (8-23) H 06/04/22 05:02 Creatinine 0.8 mg/dL (0.7-1.2) 06/04/22 05:02 GFR Calculation 97.3 mL/min (90-130) 06/04/22 05:02 Glucose 111 mg/dL (65-115) 06/04/22 05:02 Calculated Osmolality 287 mOsm/kg (285-295) 06/04/22 05:02 Lactic Acid 1.2 mmol/L (0.5-2.2) 06/01/22 22:08 Calcium 8.6 mg/dL (8.5-10.5) 06/04/22 05:02 Total Bilirubin 0.5 mg/dL (0.15-1.2) 06/04/22 05:02 AST 20 U/L (0-40) 06/04/22 05:02 ALT 14 U/L (0-41) 06/04/22 05:02 Alkaline Phosphatase 93 U/L (40-130) 06/04/22 05:02 Troponin T Baseline 35 ng/L (0-15) H 06/01/22 22:08 Troponin T 120 Minute 37.04 ng/L (0-15) H 06/02/22 00:25 Delta Troponin T 2.04 ABS# (0-10) 06/02/22 00:25 Troponin T Hi Sens 6Hr 33.14 ng/L (0-15) H 06/02/22 04:07 Troponin T Hi Sens 6Hr Delta -1.86 ng/L (0-12) L 06/02/22 04:07 NT-Pro-B Natriuret Pep 6582 pg/mL (0-125) H 06/01/22 22:08 Total Protein 6.5 g/dL (6.6-8.7) L 06/04/22 05:02 Albumin 3.2 g/dL (3.5-5.2) L 06/04/22 05:02 Globulin 3.3 g/dL (1.3-4.6) 06/04/22 05:02 Influenza Type A Ag negative (Negative) 06/02/22 02:20 Influenza Type B Ag negative (Negative) 06/02/22 02:20 SARS-CoV-2 Ag (Rapid) negative (Negative) 06/02/22 00:39 Vitals Last Vital Signs Temp 97.9 F 06/04/22 08:00 Pulse 81 06/04/22 08:00 Resp 16 06/04/22 08:00 BP 99/66 06/04/22 08:00 Pulse Ox 97 06/04/22 08:00 O2 Del Method 06/04/22 08:00 O2 Flow Rate 4 06/04/22 08:00 FiO2 40 06/02/22 04:00 Discharge Plan Discharge Patient Disposition: Home Condition: Stable Prescriptions: New albuterol sulfate 90 mcg/actuation aerosol powdr breath activated 1 inh inhalation Q6H PRN (Reason: shortness of breath) Qty: 1 4RF Trelegy Ellipta 100-62.5-25 mcg blister with device 1 inh inhalation DAILY Qty: 60 3RF levofloxacin 750 mg Tablet 750 mg PO DAILY@0600 Qty: 5 0RF lisinopril 2.5 mg tablet 2.5 mg PO DAILY Qty: 30 0RF Continued Trelegy Ellipta 100-62.5-25 mcg Blister With Device 1 inh INHALATION DAILY Qty: 8.5 3RF Discontinued Edarbi 40 mg Tablet 40 mg PO DAILY Discharge Orders: Discharge Order (Routine); Ordered 06/04/22 Ordered By: Latasha Louise Referrals: Alexys Morin M.D [Physician] - 7-10 days (message sent) Andrew Vega NP [Referring] - 06/11/22 10:30 am (Please follow up with TARIK Batres at [facility] on March 23rd at 1030. ) Paul Dale MD [Referring] - 1-3 days (Pulmonary hypertension clinic at [facility]) Discharge Diet: Cardiac Discharge Activity: Increase activity as tolerated Patient Instructions: Opioid Safety, Pain Management Discharge Attestations Time Spent in Discharge Care*: less than 30 min Quality Metrics Clinical Quality Measures [ No reported AMI, CVA or VTE this stay] Coding Level of Care Code Acute Code for Chg Fwd Diagnoses Acute exacerbation of chronic obstructive airways disease J44.1 Acute respiratory failure with hypoxia and hypercarbia J96.01; J96.02 Right ventricular dysfunction I51.9
[2022-06-04] MEDS: calcium gluconate 0.9% NaCL 1 GM/50 ML PREMIX IV (12:25)
[2022-06-04] MEDS: insulin regular-human 10 UNIT in SYRINGE 1 EACH IVP (12:26)
--- NOTE | 2022-06-04 13:18 | XACV_ITS ---
Exam Room: [facility] Ht: 178 cm Wt: 84 kg BSA: 2.05 m2 Gender: Male : 1955 Exam Priority: Routine Procedure(s): Procedure Description: Diagnostic procedure Procedure Description: PCI procedure Procedure Description: Right Heart Catheterization Procedure Description: O2 saturation Procedure Description: Drug Eluting Coronary Stent Procedure Description: PTCA Procedure Description: Cutting Balloon Procedure Description: Miscellaneous Procedure Description: ACT Procedure Description: Coronary Angiography Latasha Nichols MD; Magdalena WRIGHT; Diagnostic Cath Status: Elective Diagnostic Findings * 1. Left main luminal irregularity * 2. LAD has luminal irregularities with mid 60 to 70% stenosis3. Left circumflex artery has luminal irregularity it is a nondominant vessel without significant stenosis4. RCA has mid 100% occlusion * . PCI Status: Elective PCI Indication: STEMI - Immediate PCI for STEMI Interventional Findings * PCI to mid RCA: We were able to cross the lesion with the help of run-through wire. 2.5 x 15 mm compliant AB trek balloon followed by score flex 2.5 x 15 mm was used to dilate the lesion. 3.5 x 22 mm drug-eluting stent MDAristeo [place] was deployed at nominal pressure. Stent was then postdilated with 4.0 x 12 mm balloon. Excellent angiographic result with DARIELA-3 flow was achieved.. Recommendations * Lifestyle modificationContinue aspirin statin add beta-geri and TA inhibitor over next 24 hoursContinue dual antiplatelet therapy for at least 1 yearOn guideline medical therapy stress test in 6 to 8 weeks to assess mid LAD moderate lesion. Interventional RX Recommendation: PCI w/o planned CABG Diagnostic RX Recommendation: PCI w/o planned CABG Pressures Phase:Rest AO : 96 / 61 ( 75 ) @ 3:20:00 PM 83 / 68 ( 76 ) @ 3:22:00 PM 85 / 69 ( 74 ) @ 3:50:00 PM RV : 55 / 12 / 22 @ 3:08:00 PM PA : 65 / 33 ( 45 ) @ 2:55:00 PM 62 / 32 ( 40 ) @ 3:00:00 PM 58 / 29 ( 41 ) @ 3:02:00 PM 54 / 28 ( 39 ) @ 3:04:00 PM RA : a wave = 24 v wave = 22 mean = 20 @ 3:09:00 PM PCW : a wave = 22 v wave = 21 mean = 21 @ 3:06:00 PM O2 Content Phase:Rest PA : O2 Content O2: 62.5 @ 3:22:00 PM Saturations Phase:Rest RA : 56 @ 3:20:00 PM RV : 52 @ 3:50:00 PM PA : 63 @ 3:22:00 PM Clinical Evaluation EBL: 5mL-10mL Procedural Details Procedure Consent Obtained. Admit Source: In Patient. Pre-Procedure Time Out. Identified patient by full name and date of as verbalized by the patient/guarantor. Does the consent match the physician's order: Yes. Accurate & Complete Informed Consent: Yes. Inpatient/Outpatient History & Physical on Chart: Yes. If H&P is completed, is and addenduem needed: No; If yes, is the addendum complete: N/A. Visualize and Verify Site with Patient/Guarantor: N/A. Relevant Radiology Images available: Yes. The risks, benefits, and alternatives of sedation and/or procedure were discussed by physician. The patient agrees to continue. Procedure started. [facility] Clinical Fraility Score: 4: Vulnerable. Customer Success Manager Indications: Right Ventricular Dysfunction. Correct patient, site and procedure confirmed by cath team. PERRLA. Strong, equal hand hazardous substances scientist bilaterally. Lungs clear x 5 lobes. IV Site on Arrival: 20 gauge in the left anticubital. A 20 gauge IV was started in the right anticubital using aseptic technique. IV Fluids: 0.9% NaCl at KVO. 0 mL infused prior to labor/excavator. Pre Procedural Pulses: bilateral radial was 3+. Pre Procedural Pulses: bilateral dorsalis pedis was 1+. right groin was prepped with chloroprep then draped in the usual sterile fashion. right radial was prepped with chloroprep then draped in the usual sterile fashion. Physician notified. Baseline sample Acquired. HR: 81 BPM. Physician arrived. Immediate Pre-Procedure Time Out. Physician scrubbed in. Correct Patient: Yes; Correct Procedure: Yes; Correct Site: Yes; Correct Patient Position: Yes; Correct Supplies: Yes; Dried Flammable Prep: Yes; Blood Products Available: N/A;. Oxygen started at 2liters/min via nasal canula. Lidocaine 1% infiltrated to the right brachial. Venous access obtained. [place] MON catheter inserted. Oxygen off. Pressure measurements obtained. ABG drawn and sent with respiratory therapy. [place] out. Lidocaine 1% infiltrated to the right radial. Arterial access obtained. A 5 [place] TIG catheter in over wire. Oxygen started at 2liters/min via nasal canula. Multiple views taken of left coronary artery. Catheter redirected to the RCA. Multiple views taken of right coronary artery. Catheter out. AP Pads applied to pt. 6 [place] JR 4 guide catheter was inserted over the wire. Runthrough guidewire was advanced through the guide catheter to lesion in the prox RCA. Sera Carvalho was relieved by Kassandra Dunlap RN as monitoring person. Balloon inserted to lesion in the mid RCA. Inflation number : 1 A AB TREK 2.50X15 RX BALLOON was prepped and advanced across the Mid RCA , then inflated to 0 ANNABELLE for 0:15 seconds. Results checked. Balloon out. Stent inserted to lesion in the mid RCA. Unable to cross lesion. Intact stent removed. Scoreflex Scoring catheter inserted to prox RCA. Inflation number : 2 A Scoreflex 2.5 x 15mm was prepped and advanced across the Mid RCA , then inflated to 16 ANNABELLE for 0:27 seconds. Inflation number: 3 The Scoreflex 2.5 x 15mm was reinflated across the Mid RCA, to 16 ANNABELLE for 0:30 seconds. Balloon out. ACT drawn. Results 432 seconds. Therapeutic limits - pre-heparin administration 90-150 seconds and monitoring heparin during a vascular procedure >250 seconds. Stent inserted to lesion in the mid Circ. Inflation Number : 4 A MDT R ROBERTO 3.5X22 LOLA -Lot Number# [id number] Exp 09/29/24 was prepped and advanced across the Mid RCA. The stent was deployed at 12 ANNABELLE for 0:26 seconds. Results checked. Stent balloon out over wire. Balloon inserted to lesion in the mid RCA. Inflation number : 5 A MDT NC EUPHORA RX 4.69M30PM BALLOON was prepped and advanced across the Mid RCA , then inflated to 10 ANNABELLE for 0:18 seconds. Inflation number: 6 The MDT NC [place] RX 4.86M77FI BALLOON was reinflated across the Mid RCA, to 16 ANNABELLE for 0:15 seconds. Results checked. Balloon out. ACT drawn. Results 210 seconds. Therapeutic limits - pre-heparin administration 90-150 seconds and monitoring heparin during a vascular procedure >250 seconds. Results checked. Guide catheter and wire removed. 14 fr IV catheter inserted over the wire to R brachial access site. Veniguard applied. A TR Band was successful obtaining hemostatsis at the Right Radial artery insertion site. Post Procedure: Pulses reassessed and unchanged. PERRLA. Strong, equal hand hazardous substances scientist bilaterally. No VTE prophylaxis required. Medication's Wasted: Nitro = 49.8 mg. Medication's Wasted: Other = Versed 1 mg. Medication's Wasted: Other = Fentanyl 50 mcg. Total IV fluids: 75 mL. PCI Indication: NSTE. Post-op diagnosis: Significant RCA disease S/P successful anigoplasty, Severe Pulmonary HTN. Complications: none. Estimated blood loss: 5mL-10mL. Responsiveness - Normal response to verbal stimuli; alert and oriented, PERRLA. Airway - Unaffected, no intervention required; spontaneous ventilation. Circulation: W/N/L, pulses unchanged. Nausea/Vomiting: No. Procedure completed. Patient transferred by wheelchair to ICU. Vital chart was stopped. Access Site Site: Right Brachial Vein Sheath Size: 6 Fr Hemostasis Success: Unsuccessful Site: Right Radial artery Sheath Size: 6 Fr Hemostasis Method: TR Band Hemostasis Success: Successful Procedure Medications Start: 1:45 PM Stop: 1:45 PM Medication: Versed 1 mg and Fentanyl 25 mcg Amount: 1 Route: I.V. Start: 1:57 PM Stop: 1:57 PM Medication: Nitrogylcerin Amount: 2 Sprays Route: S.L. Start: 2:00 PM Stop: 2:00 PM Medication: Nitrogylcerin Amount: 2 Sprays Route: S.L. Start: 2:02 PM Stop: 2:02 PM Medication: Nitrogylcerin Amount: 2 Sprays Route: S.L. Start: 2:19 PM Stop: 2:19 PM Medication: Heparin Amount: 5000 units Route: I.V. Start: 2:25 PM Stop: 2:25 PM Medication: Heparin Amount: 3000 units Route: I.V. Start: 2:29 PM Stop: 2:29 PM Medication: Aggrastat 12.5 mg/250 mL Amount: 42 ml Route: I.V. bolus Start: 2:29 PM Stop: 2:29 PM Medication: Aggrastat 12.5 mg/250 mL Amount: 15.1 ml/hr Route: I.V. bolus Start: 2:34 PM Stop: 2:34 PM Medication: Versed Amount: 1 mg Route: I.V. Start: 2:40 PM Stop: 2:40 PM Medication: Versed Amount: 1 mg Route: I.V. Start: 2:40 PM Stop: 2:40 PM Medication: Fentanyl Amount: 25 mcg Route: I.V. Start: 2:54 PM Stop: 2:54 PM Medication: Heparin Amount: 3000 units Route: I.V. Start: 2:54 PM Stop: 2:54 PM Medication: Plavix Amount: 600 mg Route: P.O. I, the attending physician, have reviewed and verified all procedure medications. Yes, all medications given per verbal order History/Risk Factors Hypertension: No Dyslipidemia: No Peripheral Arterial Disease (PAD): No Myocardial Infarction ([place]): No Obesity: No Prior Interventions PCI: No CABG: No Valve Surgery: No Report Signatures Finalized by Latasha Nichols MD on 06/07/2022 11:35 PM
[2022-06-04 14:17] LABS: Blood Gas Allen Test Pos; Blood Gas Operator Identificat MONRO; Blood Gas Sample Site Not specified; Blood Gas Sample Type Not specified; Methemoglobin 0.5 % (0.4-1.5)
[2022-06-04 14:21] LABS: Arterial Blood Gas Hematocrit 47.7 % (42-52); Blood Gas Allen Test Pos; Blood Gas Operator Identificat MONRO; Blood Gas Sample Site Not specified; Blood Gas Sample Type Not specified; Carboxyhemoglobin 1.1 %THgb (0.4-20.1); HGB O2 Sat 61.6 % (95-100); Methemoglobin 0.3 % (0.4-1.5); Total Hemoglobin 15.6 g/dL (14-18)
[2022-06-04 14:23] LABS: Arterial Blood Gas Hematocrit 36.9 % (42-52); Blood Gas Allen Test Pos; Blood Gas Operator Identificat MONRO; Blood Gas Sample Site Not specified; Blood Gas Sample Type Not specified; Carboxyhemoglobin 1.2 %THgb (0.4-20.1); HGB O2 Sat 54.9 % (95-100); Methemoglobin 0.7 % (0.4-1.5); Total Hemoglobin 12.1 g/dL (14-18)
[2022-06-04 14:24] LABS: Oxygen Device RA
[2022-06-04 14:24] LABS: Oxygen Device RA
[2022-06-04 14:25] LABS: Oxygen Device RA
[2022-06-04 14:29] LABS: Arterial Blood Gas Hematocrit 45.3 % (42-52); Blood Gas Allen Test Pos; Blood Gas Operator Identificat MONRO; Blood Gas Sample Site Not specified; Blood Gas Sample Type Not specified; Carboxyhemoglobin 1.1 %THgb (0.4-20.1); HGB O2 Sat 72.1 % (95-100); Methemoglobin 0.4 % (0.4-1.5); Oxygen Device ROOM AIR; Total Hemoglobin 14.8 g/dL (14-18)
--- NOTE | 2022-06-04 15:12 | PC.NURSE ---
Called report to Sia Ahmadi RN in ICU
--- NOTE | 2022-06-04 15:23 | P.CONIM_ITS ---
Providers/Reason For Consult Consulting Physician/Specialty*: Dr. Louise Reason for Consult*: Shortness of breath Severe right ventricular dysfunction Pulmonary hypertension Attending Physician: Latasha Louise MD History of Present Illness History of Present Illness Silvestre Olguin is a 66 year old male past medical history significant for hypertension hyperlipidemia continuous tobacco abuse COPD, presented with worsening of shortness of breath treated for COPD exacerbation. Echocardiogram was obtained suggestive of normal ejection fraction with severely enlarged right ventricle and moderately severe pulmonary hypertension. It is the reason we have been asked to assess patient. Due to worsening of shortness of breath o ccasionally chest pressure and new onset of pulmonary hypertension with severe LV dysfunction patient underwent left and right heart catheterization today. He was noted to have severe precapillary pulmonary hypertension without reversibility PA mean was 45 mmHg. Left heart cath was noted to have moderate mid LAD 50 to 60% stenosis thought not to be significant however RCA was large caliber and size dominant vessel with severe calcified mid 99% stenosis. It was treated with angio score balloon and stent postdilated with noncompliant balloon, excellent angiographic result with DARIELA-3 flow was achieved. Review of Systems Const: Reports: other (Denies chest pain admits to shortness of breath) Medications/Allergies Home Medications Medication Instructions Recorded Confirmed Last Taken Type albuterol sulfate 90 mcg/actuation 1 inh inhalation Q6H PRN shortness 06/04/22 Unknown Rx breath activated powder inhaler of breath #1 ea fluticasone fur. 100 mcg-umeclid 1 inh inhalation DAILY #60 ea 06/04/22 Unknown Rx 62.5 mcg-vilant 25 mcg inhalat.powder (Trelegy Ellipta) fluticasone fur. 100 mcg-umeclid 1 inh inhalation DAILY #8.5 ea 06/04/22 06/02/22 Unknown Rx 62.5 mcg-vilant 25 mcg inhalat.powder (Trelegy Ellipta) levofloxacin 750 mg tablet 750 mg PO DAILY@0600 #5 tabs 06/04/22 Unknown Rx lisinopril 2.5 mg tablet 2.5 mg PO DAILY #30 tabs 06/04/22 Unknown Rx Allergies Allergy/AdvReac Type Severity Reaction Status Date / Time No Known Allergies Allergy Verified 06/02/22 08:32 Current Medications Generic Name Dose Route Start Last Admin Trade Name Freq PRN Reason Stop Dose Admin Albuterol/Ipratropium 3 ml 06/02/22 02:07 06/04/22 13:34 Ipratropium-Albuterol 3 Ml Neb INHALATION Not Given Q6H.RESP BENITA Amlodipine Besylate 10 mg 06/02/22 11:00 06/03/22 08:50 Amlodipine 10 Mg Tablet PO Not Given DAILY BENITA Levofloxacin 750 mg 06/04/22 06:00 06/04/22 05:56 Levofloxacin 750 Mg Tablet PO 750 mg DAILY@0600 BENITA Administration Protocol Lisinopril 10 mg 06/02/22 11:00 06/03/22 08:50 Lisinopril 10 Mg Tablet PO Not Given DAILY BENITA Prednisone 40 mg 06/04/22 09:00 06/04/22 09:59 Prednisone 20 Mg Tablet PO 40 mg DAILY BENITA Administration PFSH Acute PFSH: Medical History (Updated 06/04/22 @ 18:12 by Latasha Nichols MD) COPD (chronic obstructive pulmonary disease) HTN (hypertension) Liver cirrhosis Right ventricular dysfunction Surgical History No significant past surgical history Family History Other COPD (chronic obstructive pulmonary disease) Cancer Social History Smoking and tobacco status: current every day smoker cigarettes [ Other cigarette details: Has cut down] Lives independently: Yes Current occupational status: employed Current occupational exposures/hazards: Yes 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 Vitals/I&O/Wt Last Vital Signs Temp 98.2 F 06/04/22 12:00 Pulse 80 06/04/22 12:00 Resp 15 06/04/22 12:00 BP 100/65 06/04/22 12:00 Pulse Ox 96 06/04/22 12:00 O2 Del Method 06/04/22 12:00 O2 Flow Rate 4 06/04/22 12:00 FiO2 40 06/02/22 04:00 06/04/22 06/04/22 06/04/22 06:59 14:59 22:59 Output Total 875 / 875 800 / 800 Balance -875 / -155 -800 / -800 Physical Exam Narrative: Alert awake oriented x3 No JVD cyanosis or icterus Heart regular S1-S2 Lungs clear to auscultate bilaterally Abdomen mildly distended nontender positive 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 Data 06/04/22 05:02 06/04/22 05:02 Micro: Microbiology 06/03/22 07:20 Gram Stain - Final Sputum - Expectorated Sputum Sputum Culture - Preliminary A&P Assessment and plan (1) Pulmonary hypertension: Patient has severe pulm hypertension by right heart catheterization. Suggest starting Revatio and oxygen. (2) CAD (coronary artery disease): Noted to have moderate LAD disease which is thought not to be significant however mid RCA was fixed with drug-eluting stent, continue aspirin and statin add beta-geri (3) Right ventricular dysfunction: Secondary to severe pulmonary hypertension due to COPD. (4) Acute respiratory failure with hypoxia and hypercarbia: Secondary to COPD exacerbation and pulm hypertension. Consult Attestations Medical Necessity Statement: Patient require continuation hospitalization for above defined care. Coding Level of Care Code Acute Code for [facility] Diagnoses Pulmonary hypertension I27.20 CAD (coronary artery disease) I25.10 Right ventricular dysfunction I51.9 Acute respiratory failure with hypoxia and hypercarbia J96.01; J96.02
[2022-06-04 16:30] LABS: Blood Urea Nitrogen 21 mg/dL (8-23); Calcium 8.7 mg/dL (8.5-10.5); Carbon Dioxide 30 mmol/L (22-29); Chloride 97 mmol/L (98-107); Glomerular Filtration Rate 113.5 mL/min (90-130); Glucose 91 mg/dL (65-115); Osmolality Calculated 281 mOsm/kg (285-295); Sodium 134 mmol/L (136-145)
[2022-06-04 16:34] LABS: Anion Gap 12.2 (5-19); Potassium 5.2 mmol/L (3.5-5.1)
--- NOTE | 2022-06-04 17:29 | PC.NURSE ---
[employer] turned off at 1705.
[2022-06-04] MEDS: ipratropium-albuterol 3 mL Neb INHALATION (19:45)
[2022-06-04] MEDS: atorvastatin 40 mg Tablet PO (20:25)
[2022-06-04] MEDS: temazepam 15 mg Capsule PO (20:25)
[2022-06-05] VITALS (46 sets, daily range): BP systolic 97–131; BP diastolic 64–84; PULSE 57–100; RESP 11–24; TEMP 36.4–36.7; O2SAT 78–97
[2022-06-05] MEDS: ipratropium-albuterol 3 mL Neb INHALATION ×2 (01:40→08:54)
[2022-06-05 03:37] LABS: Basophils % 0.1 %; Hematocrit 47.7 % (42.0-52.0); Hemoglobin 14.3 g/dL (11.7-16.6); Lymphocytes # 1.3 10^3/uL (0.8-4.8); Lymphocytes % 12.5 %; Mean Corpuscular Hemoglobin 30.8 pg (28.0-34.0); Mean Corpuscular Volume 102.8 fl (80-94); Mean Platelet Volume 10.2 fL (7.4-10.4); Monocytes # 0.8 10^3/uL (0.2-0.9); Monocytes % 7.4 %; Neutrophils # 8.24 10^3/uL (1.8-7.7); Neutrophils % 79.5 %; Nucleated Red Blood Cells % 0 %; Platelet Count 163 10^3/cmm (130-400); Red Blood Count 4.64 10^6/uL (4.1-5.3); Red Cell Distribution Width 14.6 % (12.1-15.1); White Blood Count 10.4 10^3/uL (4.0-10.0)
[2022-06-05 03:54] LABS: Alanine Aminotransferase 22 U/L (0-41); Albumin Level 3.1 g/dL (3.5-5.2); Alkaline Phosphatase 82 U/L (40-130); Aspartate Amino Transferase 28 U/L (0-40); Blood Urea Nitrogen 21 mg/dL (8-23); Calcium 8.7 mg/dL (8.5-10.5); Carbon Dioxide 39 mmol/L (22-29); Chloride 97 mmol/L (98-107); Globulin 2.9 g/dL (1.3-4.6); Glomerular Filtration Rate 113.5 mL/min (90-130); Glucose 87 mg/dL (65-115); Osmolality Calculated 290 mOsm/kg (285-295); Sodium 139 mmol/L (136-145); Total Bilirubin 0.9 mg/dL (0.15-1.2)
[2022-06-05] MEDS: levoFLOXacin 750 mg Tablet PO (05:49)
[2022-06-05] MEDS: aspirin 81 mg EC Tablet PO (09:31)
[2022-06-05] MEDS: clopidogrel 75 mg Tablet PO (09:31)
[2022-06-05] MEDS: predniSONE 20 mg Tablet 40 MG PO (09:31)
--- NOTE | 2022-06-05 09:53 | PM.PN ---
Subjective Subjective: Patient is overall feeling better, no overnight event. 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 Patient has moderate 50 to 60% mid LAD stenosis, continue medical management repeat stress test in 6 to 8 weeks to assess LAD for ischemia and possible staged PCI if indicated. Continue aspirin statin clopidogrel, add beta-geri if tolerates metoprolol 12.5 mg twice daily. He needs to continue dual antiplatelet therapy for at least 1 year. Please follow-up with cardiology nurse practitioner over next 10 days. Please follow-up with cardiology regularly. (2) Pulmonary hypertension: Patient needs home oxygen for severe pulmonary hypertension. He needs to follow-up with pulmonary and specialized pulmonary hypertension clinic for further assessment with endothelial receptor geri agents (3) Right ventricular dysfunction: Secondary to severe pulmonary hypertension continue oxygen. (4) COPD (chronic obstructive pulmonary disease): Attestations Medical Necessity Statement*: From a cardiovascular perspective patient can be discharged home Coding Level of Care Code Acute Code for [facility] Fwd Diagnoses CAD (coronary artery disease) I25.10 Pulmonary hypertension I27.20 Right ventricular dysfunction I51.9 COPD (chronic obstructive pulmonary disease) J44.9
--- NOTE | 2022-06-05 12:30 | P.PN_ITS ---
Subjective Subjective: Patient was seen this morning, he is doing well, he is on oxygen, he reports smoking, but does have a desire to quit, denies any chest pain, palpitations Vitals/I&O/Wt Last Vital Signs Temp 97.6 F 06/05/22 08:30 Pulse 86 06/05/22 12:00 Resp 21 H 06/05/22 12:00 BP 114/76 06/05/22 12:00 Pulse Ox 91 06/05/22 12:00 O2 Del Method 06/05/22 12:00 O2 Flow Rate 2 06/05/22 11:45 FiO2 40 06/02/22 04:00 06/04/22 06/05/22 06/05/22 22:59 06:59 14:59 Intake Total 200 / 200 100 / 300 250 / 250 Output Total 1100 / 1900 1025 / 2925 Balance -900 / -1700 -925 / -2625 250 / 250 Physical Exam Const: COMMON NORMALS: no acute distress and patient oriented x3 Resp: COMMON NORMALS: normal respiratory effort, No retractions, No use of accessory muscles and clear to auscultation bilaterally AUSCULTATION: clear to auscultation bilaterally Cardio: COMMON NORMALS: regular rate, regular rhythm, S1 normal heart sound present and S2 normal heart sound present RATE: regular rate RHYTHM: regular rhythm HEART SOUNDS: S1 normal heart sound present and S2 normal heart sound present GI: COMMON NORMALS: Normal to inspection, nondistended, normoactive bowel sounds present and non-tender Extremity: COMMON NORMALS: no pedal edema Neuro: COMMON NORMALS: patient oriented x3 Psych: COMMON NORMALS: mental status grossly normal Data 06/05/22 03:00 06/05/22 03:00 Micro: Microbiology 06/03/22 07:20 Gram Stain - Final Sputum - Expectorated Sputum Sputum Culture - Preliminary A&P Assessment and plan (1) Acute exacerbation of chronic obstructive airways disease: (2) Acute respiratory failure with hypoxia and hypercarbia: (3) Right ventricular dysfunction: Plan 66-year male who does not follow-up with PCP on regular basis presented with chief complaint of worsening of shortness of breath he was diagnosed with hypoxic hypercapnic respiratory failure required BiPAP with transition him to 4 L nasal cannula, he is self-pay, during work-up found right heart strain, no signs of PE, likely undiagnosed pulmonary hypertension Acute COPD exacerbation Improved Discharge on Levaquin, prednisone, oxygen therapy Acute on chronic hypoxia Currently on 4 L Home oxygen evaluation will be needed before discharge Right ventricular dysfunction like related to undiagnosed pulmonary hypertension No signs of PE With evidence of severe pulm hypertension Echo reviewed Echo findings discussed with the patient All concerning findings explained to the patient in simple terms, right ventric le dysfunction is considered high risk for mortality morbidity Follow with pulmonary as outpatient and pulm hypertension clinic for consideration of revatio Significant leukocytosis Request MRSA PCR Sputum culture reviewed Most likely leukocytosis due to high-dose steroids which were used every 8 hours on admission, nonetheless discharged on Levaquin Status post PCI to RCA Discharged on aspirin, Plavix, statin Follow-up with cardiology 50 to 60% mid LAD stenosis, follow-up with repeat stress test 6 to 8 weeks with cardiology Attestations Medical Necessity Statement*: Patient will be discharged today Diagnoses Acute exacerbation of chronic obstructive airways disease J44.1 Acute respiratory failure with hypoxia and hypercarbia J96.01; J96.02 Right ventricular dysfunction I51.9
--- NOTE | 2022-06-05 13:45 | PC.NURSE ---
Discharge follow-up appts: Pt was instructed to call Wednesday to make follow-up appts with Dr Ruiz and Dr Morin, as office closed at this time. Follow-up /referral appt with Dr Paul Dale at [facility] in [facility] declined/ refused by pt. so information ot faxed or sent or appt made per pt request.
--- NOTE | 2022-06-05 14:04 | PC.NURSE ---
Addendum entered by Ludivina Ramirez RN 06/05/22 15:17: Will wait until Medications arrive and pt departing before complete discharge from computer. Original Note: Pt discharge instructions discussed and signed. Awaiting Meds to beds for final discharge.
--- NOTE | 2022-06-05 15:14 | PC.NURSE ---
Only partial new prescriptions arrived for Meds to bed. Pharmacy notified in person, medications added to his bag. certified medical technician assistant to deliver entire bag and instruct/talk with pt. Pt and family informed of delay.
--- NOTE | 2022-06-05 15:41 | PC.NURSE ---
Beds to meds completely finalized. Pt discharged home with home O2 with [facility].
== END 2022-06-05 15:30 | disposition home or self-care (01) | DRG 981 ==
LOC: ER 06-02 00:26 → MEDSURG 06-02 00:59 → ICU 06-04 15:17
PROVIDERS: Internal Medicine; Internal Medicine Cardiovascular Disease; Admitting Provider Internal Medicine; Emergency Provider Emergency Medicine; Visit Provider Family Medicine
PROC: 027034Z Dilation of Coronary Artery, One Artery with Drug-eluting Intraluminal Device, Percutaneous Approach (ICD-10-PCS; principal; 2022-06-04 13:00)
PROC: 027034Z Dilation of Coronary Artery, One Artery with Drug-eluting Intraluminal Device, Percutaneous Approach (ICD-10-PCS; 2022-06-04 13:00)
DX: J44.1 Chronic obstructive pulmonary disease with (acute) exacerbation (principal); I21.4 Non-ST elevation (NSTEMI) myocardial infarction; J96.21 Acute and chronic respiratory failure with hypoxia; J96.22 Acute and chronic respiratory failure with hypercapnia; I10 Essential (primary) hypertension; F17.210 Nicotine dependence, cigarettes, uncomplicated; K70.30 Alcoholic cirrhosis of liver without ascites; F10.10 Alcohol abuse, uncomplicated; I27.20 Pulmonary hypertension, unspecified; I51.9 Heart disease, unspecified; E78.5 Hyperlipidemia, unspecified; I25.10 Atherosclerotic heart disease of native coronary artery without angina pectoris; Z66 Do not resuscitate
CPT/HCPCS: 36415; 36600; 71045; 71275; 80048; 80053; 82805; 82810; 83605; 83880; 84484; 85025; 85347; 87040; 87070; 87205; 87426; 87804; 93005; 93306; 93460; 94640; 94660; 94664; 94760; 94762; 96365; 96367; 96375; 99152; 99153; 99285; C1725; C1751; C1769; C1874; C1887; C1894; C9600; J0461; J0610; J0696; J1644; J1815; J2250; J2920; J2930; J3010; J3475; J3490; J7030; J7040; J7512; J7613; Q9967

== ENCOUNTER 2022-07-22 09:17 | Outpatient (CLI) | payer BC, MEDICAID, SELFPAY ==
--- NOTE | 2022-07-22 | ECG_ITS ---
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 Interpretive Statements NAME OF STUDY: EXERCISE SESTAMIBI STRESS TEST INDICATION: [Shortness of Breath, ] EXERCISE DATA: The patient was exercised by Andrew protocol. Baseline heart rate was 62 beats per minute. Baseline blood pressure was 103/80 millimeters of mercury. Target heart rate was 133 beats per minute. Maximum heart rate achieved was 149 which was 112% of the target heart rate. Maximum blood pressure was 175/83 millimeters of mercury. Total exercise time was 2 minutes 9 seconds. Maximum METs achieved was 4.6. The reason for ending the test was target heart rate achieved and maximal effort achieved. The patient complained of shortness of breath during the stress test, which then resolved at the end of the test. ELECTROCARDIOGRAM: BASELINE: Showed sinus rhythm, normal axis, no significant ST-T changes at the baseline noted. [] EXERCISE: At the peak exercise level, [] No significant ST-T changes suggestive of ischemia noted. [] RECOVERY: During the recovery period, heart rate dropped appropriately. No significant ST-T changes in the recovery suggestive of ischemia noted. [] CONCLUSION: 1. Exercise capacity is poor. 2. Heart rate response was appropriate 3. Blood pressure response was appropriate 4. Symptoms not suggestive of ischemia. 5. Electrocardiogram portion of the stress test was not suggestive of ischemia. 6. Nuclear scan will be documented separately. Electronically Signed On 08-08-2022 21:39:09 CDT by Alexys Morin M.D. [id number]
[2022-07-22 09:35] VITALS: BMI 24.3
--- NOTE | 2022-07-22 10:29 | NMCV_ITS ---
NM rahel perf SPECT r/s* [id number] Silvestre Olguin Age: 66 Gender: M : 1955 Exam Date: 07/22/2022 10:29 Ordering Phys: Tram Agustin Technologist: STEVEN Barba Exam Location: [facility] Indications: ATHEROSCLEROTIC HEART DISEASE STRESS TEST [facility] IMAGE PROTOCOL Rest/Stress 1 Exercise Day Radiopharmaceutical Dose (mCi) Administration Site Administered by Rest: Tc-99m 10.7 IV STEVEN Suggs Sestamibi Stress:Tc-99m 32.6 IV STEVEN Suggs Sestamijimbo Rest: 22-Jul-2022 60 Discovery 630 Stress: 22-Jul-2022 30 Discovery 630 Radiopharmaceutical was injected at 91 % maximum heart rate. Images obtained in supine and prone position. SPECT RESULTS Technical Quality: Excellent Raw Data Analysis: Normal Image Corrections: No attenuation or motion correction applied Summed Stress Score: 0 Summed Rest Score: 0 Summed Difference Score: 0 PERFUSION FINDINGS SPECT images demonstrate homogeneous tracer distribution throughout the myocardium. FUNCTIONAL RESULTS (calculated via Gated SPECT) Stress Image LV EF (%): 60 Stress EDV (mL):86 TID: 0.97 Stress ESV (mL):34 FUNCTIONAL FINDINGS: There is normal left ventricular systolic function. IMPRESSIONS 1. Normal myocardial perfusion imaging with no evidence of ischemia 2. LV systolic function is normal Alexys Morin MD (Electronically Signed) Final Date: 22 Jul 2022 16:39 S
[2022-07-22 11:35] VITALS: BP 166/82; PULSE 95
== END 2022-07-22 09:18 | disposition home or self-care (01) ==
LOC: CDL 09:18
PROVIDERS: PCP Nurse Practitioner Family; Visit Provider Nurse Practitioner Family
DX: R07.9 Chest pain, unspecified (principal)
CPT/HCPCS: 36415; 78452; 80048; 93017; A9500

== ENCOUNTER 2022-08-05 10:41 | Outpatient (CLI) | payer BC, MEDICAID, SELFPAY ==
--- NOTE | 2022-08-05 11:01 | XRR_ITS ---
PROCEDURE INFORMATION: Exam: XR Left Forearm Exam date and time: 08/05/2022 11:18 AM Age: 66 years old Clinical indication: Injury or trauma; Other: Puncture wound; Arm, lower; Left; Additional info: Puncture wound without foreign body of left upper arm TECHNIQUE: Imaging protocol: Radiologic exam of the left forearm. Views: 2 views. COMPARISON: No relevant prior studies available. FINDINGS: Bones/joints: No radial fracture identified. No ulnar fracture identified. Soft tissues: Normal. XR/XR forearm LT 2V [id number] IMPRESSION: No radial or ulnar fracture identified.
== END 2022-08-05 10:42 | disposition home or self-care (01) ==
LOC: RAD 10:47
PROVIDERS: PCP Nurse Practitioner Family; Visit Provider Nurse Practitioner Family
DX: S41.132A Puncture wound without foreign body of left upper arm, initial encounter (principal); X58.XXXA Exposure to other specified factors, initial encounter
CPT/HCPCS: 73090

== ENCOUNTER → 2023-10-14 15:28 | Outpatient (BNVA) | payer MEDICAID, SELFPAY | PROVIDERS: PCP Nurse Practitioner Family; Visit Provider Internal Medicine | DX: I25.10 Atherosclerotic heart disease of native coronary artery without angina pectoris (principal); I11.9 Hypertensive heart disease without heart failure; Z87.891 Personal history of nicotine dependence | CPT/HCPCS: 99214 ==

== ENCOUNTER → 2024-07-13 15:30 | Outpatient (BNVA) | payer MEDICARE, SELFPAY | PROVIDERS: Visit Provider Internal Medicine | DX: I25.10 Atherosclerotic heart disease of native coronary artery without angina pectoris (principal); I10 Essential (primary) hypertension; I51.9 Heart disease, unspecified; Z79.01 Long term (current) use of anticoagulants; Z79.82 Long term (current) use of aspirin; Z87.891 Personal history of nicotine dependence | CPT/HCPCS: 99213 ==